=== PATIENT | male | born 1960 | race Caucasian/White ===

== ENCOUNTER 2022-03-20 09:45 | Inpatient (IN) | payer MEDICAID ==
[2022-03-19 08:47] LABS: COVID AG,FIA SOURCE NASOPHARYNGEAL
[~2022-03-20] VITALS: Ht 175.3 cm; Wt 80.4 kg
[~2022-03-20 09:45] MED LIST: AMLO5TAB66 PO; ATOR40TA71 PO; CYCL-448 PO; DULA4.5P SQ; DULO-113 PO; EMPA10TA PO; LISI10TA24 PO; MELO-107 PO; METF-446 PO; PREG75 PO
[2022-03-20] MEDS ORDERED: RINGERS SOLUTION,LACTATED 1,000 ML IV ONE ×4 (10:00→20:45)
[2022-03-20] MEDS ORDERED: BUPIVACAINE LIPOSOME/PF 1.3%-13.3MG/ML SUSPENSION 20 ML VIAL INJ ONE (10:15)
[2022-03-20] MEDS ORDERED: BUPIVACAINE/EPI/PF 0.5% 30 ML VIAL ONE (10:16)
[2022-03-20] MEDS ORDERED: THROMBIN, BOVINE 20000 UNITS/VIAL POWDER TP ONE ×2 (10:17→15:24)
[2022-03-20] MEDS ORDERED: PROPOFOL 1000 MG/ISO-OSM 100 ML ONE (11:54)
[2022-03-20] MEDS ORDERED: ACETAMINOPHEN 1000 MG/ISO-OSM 100 ML IV ONE ×3 (11:55→17:48)
[2022-03-20 11:57] LABS: GLUCOMETER DEV NAME(LOC) SDS.; GLUCOSE,POINT OF CARE 133 MG/DL (70-110)
[2022-03-20] MEDS ORDERED: LIDOCAINE/PF 2% 5 ML VIAL IM ONE (12:00)
[2022-03-20] MEDS ORDERED: ROCURONIUM BROMIDE 10 MG/ML 5 ML VIAL IVP ONE (12:00)
[2022-03-20] MEDS ORDERED: 0.9% SODIUM CHLORIDE 10 ML VIAL IVP ONE (12:00)
[2022-03-20] MEDS ORDERED: PROPOFOL 1% 20 ML VIAL IVP ONE (12:00)
[2022-03-20] MEDS ORDERED: TRANEXAMIC ACID 1,000 MG/10 ML VIAL ONE (12:42)
[2022-03-20] MEDS ORDERED: VANCOMYCIN HCL 1 GM/VIAL ONE (12:45)
[2022-03-20] MEDS ORDERED: HYDROCODONE/ACETAMINOPHEN 10-325 MG TABLET PO PRN ×2 (17:15)
[2022-03-20] MEDS ORDERED: HYDROmorphone 2 MG/ML VIAL IVP PRN ×2 (17:15→17:30)
[2022-03-20] MEDS ORDERED: FentaNYL CITRATE PF 100 MCG/2 ML VIAL IVP PRN (17:30)
[2022-03-20] MEDS ORDERED: MEPERIDINE-PF 25 MG/ML VIAL IVP PRN (17:30)
[2022-03-20 18:48] VITALS: BP 101/66
[2022-03-20 19:30] VITALS: BP 98/68
[2022-03-20] MEDS: OXYGEN THERAPY IH SCH (20:11)
[2022-03-20] MEDS ORDERED: DEXTROSE 50%-WATER 25 GM/50 ML SYRINGE IVP PRN (20:45)
[2022-03-20] MEDS ORDERED: ONDANSETRON HCL 4 MG/2 ML VIAL IVP PRN (20:45)
[2022-03-20] MEDS ORDERED: NALOXONE HCL 0.4 MG/ML VIAL IVP PRN (20:45)
[2022-03-20] MEDS: SENNA 187 MG TABLET PO SCH (21:01)
[2022-03-20] MEDS: INSULIN GLARGINE,HUM.REC.ANLOG 100 UNITS/ML SQ SCH (21:08)
[2022-03-20] MEDS: INSULIN LISPRO 100 UNITS/ML SQ PRN (21:09)
[2022-03-20] MEDS: HEPARIN SODIUM,PORCINE 5,000 UNITS/ML VIAL SQ SCH (22:46)
[2022-03-20] MEDS ORDERED: SODIUM CHLORIDE 0.9% 250 ML IV ONE (23:17)
[2022-03-20] MEDS: CYCLOBENZAPRINE HCL 10 MG TABLET PO SCH (23:23)
[2022-03-20] MEDS: CeFAZolin 2 GM/DEXTROSE 50 ML IV SCH (23:25)
[2022-03-20 23:36] LABS: GLUCOMETER DEV NAME(LOC) 6N.2; GLUCOSE,POINT OF CARE 144 MG/DL (70-110)
[2022-03-21 00:28] VITALS: BP 101/64
[2022-03-21] MEDS: MORPHINE SULFATE 4 MG/ML SYRINGE IVP PRN ×6 (02:15→23:30)
[2022-03-21 03:44] VITALS: BP 115/65
[2022-03-21] MEDS: CeFAZolin 2 GM/DEXTROSE 50 ML IV SCH (05:37)
[2022-03-21 08:00] VITALS: BP 115/67
[2022-03-21] MEDS: HEPARIN SODIUM,PORCINE 5,000 UNITS/ML VIAL SQ SCH ×3 (08:00→23:35)
[2022-03-21] MEDS: CYCLOBENZAPRINE HCL 10 MG TABLET PO SCH ×3 (08:53→23:34)
[2022-03-21] MEDS: SENNA 187 MG TABLET PO SCH ×2 (08:53→20:01)
[2022-03-21] MEDS: OXYGEN THERAPY IH SCH ×2 (08:53→19:44)
[2022-03-21] MEDS: PREGABALIN 75 MG CAPSULE PO SCH ×2 (08:53→20:01)
[2022-03-21] MEDS: HYDROCODONE/ACETAMINOPHEN 5-325 MG TABLET PO PRN ×2 (14:29→21:53)
[2022-03-21 15:46] LABS: GLUCOMETER DEV NAME(LOC) 6N.2; GLUCOSE,POINT OF CARE 117 MG/DL (70-110)
[2022-03-21 15:46] LABS: GLUCOMETER DEV NAME(LOC) 6N.1; GLUCOSE,POINT OF CARE 122 MG/DL (70-110)
[2022-03-21 16:00] VITALS: BP 116/58
[2022-03-21 19:45] VITALS: BP 125/69
[2022-03-21] MEDS: INSULIN GLARGINE,HUM.REC.ANLOG 100 UNITS/ML SQ SCH (20:08)
[2022-03-21] MEDS: INSULIN LISPRO 100 UNITS/ML SQ PRN (20:09)
[2022-03-21 21:46] LABS: GLUCOMETER DEV NAME(LOC) 6N.1; GLUCOSE,POINT OF CARE 143 MG/DL (70-110)
[2022-03-21 21:46] LABS: GLUCOMETER DEV NAME(LOC) 6N.1; GLUCOSE,POINT OF CARE 105 MG/DL (70-110)
[2022-03-21] MEDS: DEXAMETHASONE SOD PHOS 4 MG/ML VIAL IVP SCH (23:30)
[2022-03-22] MEDS: MORPHINE SULFATE 4 MG/ML SYRINGE IVP PRN (03:29)
[2022-03-22 04:25] VITALS: BP 112/52
[2022-03-22] MEDS: DEXAMETHASONE SOD PHOS 4 MG/ML VIAL IVP SCH ×3 (06:03→17:42)
[2022-03-22] MEDS: HYDROCODONE/ACETAMINOPHEN 5-325 MG TABLET PO PRN (06:04)
[2022-03-22 06:43] LABS: HEMATOCRIT 45.5 % (41-53); HEMOGLOBIN 15.6 g/dL (13.5-17.5); MEAN CORPUSCULAR HEMOGLOBIN 30.6 pg (26.0-34.0); MEAN CORPUSCULAR HGB CONC 34.4 G/dL (31.0-37.0); MEAN CORPUSCULAR VOLUME 89 fL (80-100); PLATELET COUNT (AUTO) 247 K/uL (150-450); RED CELL DISTRIBUTION WIDTH 15.2 % (11.5-14.5)
[2022-03-22] MEDS ORDERED: OxyCODONE HCL/ACETAMINOPHEN 5-325 MG TABLET PO PRN (06:45)
[2022-03-22 07:20] LABS: ANION GAP 10 mmol/L (8-16); CALCIUM, TOTAL 8.8 mg/dL (8.8-10.5); CARBON DIOXIDE 25 mmol/L (22-29); CHLORIDE 95 mmol/L (98-107); CREATININE 0.54 mg/dL (0.60-1.30); GLUCOSE,RANDOM 143 mg/dL (70-110); POTASSIUM 4.4 mmol/L (3.5-5.1); SODIUM SERUM 130 mmol/L (136-145); UREA NITROGEN, BLOOD 11 mg/dL (7-18)
[2022-03-22 07:22] LABS: GLOMERULAR FILTR. RATE CALC > 60 mL/min (>60)
[2022-03-22 07:50] VITALS: BP 103/63
[2022-03-22] MEDS: OXYGEN THERAPY IH SCH ×2 (08:00→19:44)
[2022-03-22] MEDS: HYDROmorphone 2 MG/ML VIAL IVP PRN ×4 (08:43→23:21)
[2022-03-22] MEDS: HEPARIN SODIUM,PORCINE 5,000 UNITS/ML VIAL SQ SCH ×3 (08:50→23:19)
[2022-03-22] MEDS: SENNA 187 MG TABLET PO SCH ×2 (08:54→21:20)
[2022-03-22] MEDS: DOCUSATE SODIUM 100 MG CAPSULE PO SCH ×2 (08:54→21:20)
[2022-03-22] MEDS: PREGABALIN 75 MG CAPSULE PO SCH ×2 (08:58→21:21)
[2022-03-22] MEDS: CYCLOBENZAPRINE HCL 10 MG TABLET PO SCH ×3 (08:58→23:19)
[2022-03-22 09:14] LABS: SEGMENTED NEUTROPHILS % 75 % (40-70)
[2022-03-22 09:15] LABS: BAND NEUTROPHILS % (MANUAL) 11 % (0-5); LYMPHOCYTES % (MANUAL) 3 % (22-44); MONOCYTES % (MANUAL) 11 % (2-9)
[2022-03-22] MEDS: OxyCODONE HCL/ACETAMINOPHEN 5-325 MG TABLET PO PRN ×3 (10:22→21:21)
[2022-03-22] MEDS ORDERED: METF-1211 PO (10:33)
[2022-03-22] MEDS ORDERED: LISI-893 PO (10:33)
[2022-03-22] MEDS ORDERED: ATOR40TA28 PO (10:33)
[2022-03-22] MEDS ORDERED: AMLO-257 PO (10:33)
[2022-03-22 11:31] LABS: GLUCOMETER DEV NAME(LOC) 6N.2; GLUCOSE,POINT OF CARE 178 MG/DL (70-110)
[2022-03-22] MEDS: INSULIN LISPRO 100 UNITS/ML SQ PRN ×3 (11:34→21:25)
[2022-03-22] MEDS: POLYETHYLENE GLYCOL 3350 17 GM PACKET PO SCH (14:15)
[2022-03-22 15:33] VITALS: BP 116/58
[2022-03-22 20:29] VITALS: BP 117/70
[2022-03-22] MEDS: INSULIN GLARGINE,HUM.REC.ANLOG 100 UNITS/ML SQ SCH (21:23)
[2022-03-22 23:21] LABS: GLUCOMETER DEV NAME(LOC) 6N.1; GLUCOSE,POINT OF CARE 136 MG/DL (70-110)
[2022-03-22 23:21] LABS: GLUCOMETER DEV NAME(LOC) 6N.1; GLUCOSE,POINT OF CARE 209 MG/DL (70-110)
[2022-03-23 00:56] LABS: GLUCOMETER DEV NAME(LOC) 6N.2; GLUCOSE,POINT OF CARE 215 MG/DL (70-110)
[2022-03-23 04:45] VITALS: BP 122/73
[2022-03-23] MEDS: HYDROmorphone 2 MG/ML VIAL IVP PRN ×3 (04:50→13:36)
[2022-03-23] MEDS: INSULIN LISPRO 100 UNITS/ML SQ PRN ×2 (06:22→11:39)
[2022-03-23 06:51] LABS: BASOPHILS % (AUTO) 0.5 % (0.0-2.0); EOSINOPHILS % (AUTO) 0.2 % (1.0-6.0); HEMATOCRIT 43.6 % (41-53); HEMOGLOBIN 14.9 g/dL (13.5-17.5); LYMPHOCYTES # (AUTO) 1.4 K/uL (1.0-4.8); LYMPHOCYTES % (AUTO) 6.4 % (22.0-44.0); MEAN CORPUSCULAR HEMOGLOBIN 30.3 pg (26.0-34.0); MEAN CORPUSCULAR HGB CONC 34.2 G/dL (31.0-37.0); MEAN CORPUSCULAR VOLUME 89 fL (80-100); MONOCYTES # (AUTO) 2.3 K/uL (0.1-1.0); MONOCYTES % (AUTO) 10.7 % (2.0-9.0); NEUTROPHILS # (AUTO) 17.5 K/uL (1.8-7.7); NEUTROPHILS % (AUTO) 82.2 % (40.0-70.0); PLATELET COUNT (AUTO) 311 K/uL (150-450); RED BLOOD CELL COUNT(AUTO) 4.93 MIL/uL (4.50-5.90); RED CELL DISTRIBUTION WIDTH 15.4 % (11.5-14.5)
[2022-03-23 07:16] LABS: GLUCOMETER DEV NAME(LOC) 6N.2; GLUCOSE,POINT OF CARE 159 MG/DL (70-110)
[2022-03-23] MEDS: OXYGEN THERAPY IH SCH (07:47)
[2022-03-23 08:01] VITALS: BP 117/70
[2022-03-23] MEDS: CYCLOBENZAPRINE HCL 10 MG TABLET PO SCH (08:03)
[2022-03-23] MEDS: HEPARIN SODIUM,PORCINE 5,000 UNITS/ML VIAL SQ SCH (08:04)
[2022-03-23] MEDS: DOCUSATE SODIUM 100 MG CAPSULE PO SCH (08:04)
[2022-03-23] MEDS: PREGABALIN 75 MG CAPSULE PO SCH (08:04)
[2022-03-23] MEDS: OxyCODONE HCL/ACETAMINOPHEN 5-325 MG TABLET PO PRN (08:05)
[2022-03-23] MEDS: SENNA 187 MG TABLET PO SCH (08:09)
[2022-03-23] MEDS: POLYETHYLENE GLYCOL 3350 17 GM PACKET PO SCH (08:09)
[2022-03-23] MEDS ORDERED: PERCT PO (12:17)
[2022-03-23 12:46] LABS: GLUCOMETER DEV NAME(LOC) 6N.1; GLUCOSE,POINT OF CARE 149 MG/DL (70-110)
== END 2022-03-23 14:55 | disposition home health service (06) | DRG 310 ==
LOC: SURGERY 09:45 → 6N 18:41
PROVIDERS: ADMIT Orthopaedic Surgery Orthopaedic Surgery of the Spine; ATTEND Orthopaedic Surgery Orthopaedic Surgery of the Spine
PROC: 00NY0ZZ Release Lumbar Spinal Cord, Open Approach (ICD-10-PCS; 2022-03-20)
PROC: 01NR0ZZ Release Sacral Nerve, Open Approach (ICD-10-PCS; 2022-03-20)
PROC: 4A11X4G Monitoring of Peripheral Nervous Electrical Activity, Intraoperative, External Approach (ICD-10-PCS; 2022-03-20)
PROC: 01NB0ZZ Release Lumbar Nerve, Open Approach (ICD-10-PCS; principal; 2022-03-20 12:00)
DX: M48.062 Spinal stenosis, lumbar region with neurogenic claudication (principal); E11.9 Type 2 diabetes mellitus without complications; I10 Essential (primary) hypertension; K59.00 Constipation, unspecified; Z20.822 Contact with and (suspected) exposure to COVID-19; Z79.84 Long term (current) use of oral hypoglycemic drugs; M48.07 Spinal stenosis, lumbosacral region; N99.89 Other postprocedural complications and disorders of genitourinary system; Y83.8 Other surgical procedures as the cause of abnormal reaction of the patient, or of later complication, without mention of misadventure at the time of the procedure; Y92.238 Other place in hospital as the place of occurrence of the external cause; M47.26 Other spondylosis with radiculopathy, lumbar region; R33.8 Other retention of urine
CPT/HCPCS: 80048; 82962; 85025; 87081; 97116; 97162; 97530; C9290; J0131; J0690; J1100; J1170; J1644; J1815; J2270; J2704; J3370; J3490; J7050; J7120